=== PATIENT | male | born 1940 | race Caucasian/White ===

== ENCOUNTER → 2016-10-05 | Outpatient (CLI) | payer OTHER ==
[~2016-10-05] MED LIST: ASPI81CH PO; CALTTAB PO; CARV3.125 PO; DENO60P SQ; DRIS50002 PO; EMTR1TAB2 PO; FENO54TA PO; FURO1TAB62 PO; KPHOS250 PO; NAPR220T95 PO; SODI650T PO; SPIR25TA PO; TEST200I12 IM; TIOT1AER INH; XIFA550T4 PO
--- NOTE | 2016-10-05 14:52 | RADRPT ---
EXAM DATE/TIME: 10/05/2016 14:10 [facility] COMPARISON: CHEST SINGLE AP, April 08, 2016, 11:29. INDICATIONS : Short of breath. MEDICAL HISTORY : Fluid in lungs. SURGICAL HISTORY : Fluid drained left lung. ENCOUNTER: Initial ACUITY: 7 - 11 months PAIN SCORE: 0/10 LOCATION: Bilateral chest FINDINGS: PA and lateral views of the chest demonstrate moderate right pleural effusion bibasilar density. Hear t enlarged. Left lung clear. Left-sided defibrillator with intact leads. Osseous structures are inta ct. CONCLUSION: 1. Moderate right pleural effusion and right basilar density likely atelectasis. 2. Left-sided defibrillator. Des Major MD on October 05, 2016 at 14:49 Board Certified Radiologist. This report was verified electronically.
== END ==
LOC: HRAD 13:56
PROVIDERS: ATTEND Specialist
DX: R06.02 Shortness of breath (principal)
CPT/HCPCS: 71020

== ENCOUNTER → 2016-10-06 | Outpatient (CLI) | payer OTHER ==
--- NOTE | 2016-10-06 10:43 | RADRPT ---
EXAM DATE/TIME: 10/06/2016 10:12 [facility] COMPARISON: CHEST PA & LAT, October 05, 2016, 14:10. INDICATIONS : Short of breath and congestion. MEDICAL HISTORY : Fluid drained from left lung. SURGICAL HISTORY : ENCOUNTER: Initial ACUITY: 7 - 11 months PAIN SCORE: 0/10 LOCATION: Bilateral chest FINDINGS: Bilateral decubitus views of the chest demonstrate a moderate right pleural effusion which appears to be somewhat loculated. No evidence of free-flowing pleural effusion on the left. CONCLUSION: 1. Moderate right pleural effusion loculated in appearance. 2. No left pleural effusion. Des Major MD on October 06, 2016 at 10:36 Board Certified Radiologist. This report was verified electronically.
== END ==
LOC: HRAD 09:51
PROVIDERS: ATTEND Specialist
DX: R06.02 Shortness of breath (principal)
CPT/HCPCS: 71035

== ENCOUNTER 2016-10-08 09:24 | Day surgery (SDC) | payer OTHER, MEDICAID ==
[2016-10-08 12:30] VITALS: BP 108/74; PULSE 76; RESP 20; TEMP 97.6; O2SAT 90
[2016-10-08 12:45] VITALS: BP 124/82; PULSE 78; RESP 20; RESP 24; O2SAT 92
--- NOTE | 2016-10-08 12:57 | RADRPT ---
EXAM DATE/TIME: 10/08/2016 12:17 [facility] COMPARISON: CHEST PA & LAT, October 05, 2016, 14:10. INDICATIONS : Post thoracentesis on right side. MEDICAL HISTORY : Hypertension. Pleural effusion. SURGICAL HISTORY : Pacemaker. Defibrillator. ENCOUNTER: Initial ACUITY: 1 day PAIN SCORE: 0/10 LOCATION: Right chest FINDINGS: A single frontal expiratory view of the chest was performed. The lungs are symmetrically aerated and clear. Small right basilar pneumothorax. Heart enlarged. Left-sided defibrillator. CONCLUSION: Small right basilar pneumothorax. Des Major MD on October 08, 2016 at 12:53 Board Certified Radiologist. This report was verified electronically.
[2016-10-08 13:03] LABS: TOTAL PROTEIN,PLEURAL FLUID 3.7 GM/DL
--- NOTE | 2016-10-08 14:02 | RADRPT ---
EXAM DATE/TIME: 10/08/2016 10:31 [facility] COMPARISON: No previous studies available for comparison. INDICATIONS : Pleural effusion. Prophylactic antibiotics were administered with appropriate pre-procedure timing. MEDICAL HISTORY : Hypertension. Gastroesophageal reflux disease. HIV. Cardiac disorder. Pleural effusion.Renal disease. SURGICAL HISTORY : Thoracentesis. Cardiac surgery. ENCOUNTER: Subsequent ACUITY: 7 - 11 months PAIN SCORE: 0/10 LOCATION: Right chest FLUID: Total volume of 1100 cc of clear, red fluid was removed. Fluid was sent to lab for ordered studies. Post procedure scanning reveals no hematoma or other complication. TECHNIQUE: 1. Ultrasound guidance for thoracentesis. 2. Thoracentesis. The risks, benefits, and alternatives to ultrasound guided thoracentesis were explained to the patien t in lay simple terms, including the risk of bleeding and infection. Written and verbal informed con sent was obtained. Appropriate area for thoracentesis was marked under ultrasound guidance with the patient in the uprig ht position. Overlying skin was prepped and draped in the usual sterile fashion and with local anest hetic, a dermatotomy was made with an 11 blade scalpel. A 6 [place] thoracentesis catheter was placed in the pleural space and fluid was removed. Catheter was then removed and a sterile dressing applie d. There were no immediate complications. The patient tolerated the procedure well and the left the ultrasound suite in stable condition. Chest radiograph is to be obtained. CONCLUSION: Successful ultrasound guided thoracentesis. Minimal residual loculated fluid present. Des Major MD on October 08, 2016 at 13:57 Board Certified Radiologist. This report was verified electronically.
[2016-10-08 14:47] VITALS: BP 106/58; PULSE 86; RESP 24; O2SAT 95
--- NOTE | 2016-10-08 15:18 | RADRPT ---
EXAM DATE/TIME: 10/08/2016 14:19 [facility] COMPARISON: CHEST SINGLE AP, April 08, 2016, 11:29. INDICATIONS : Post thoracentesis. MEDICAL HISTORY : Hypertension. Pleural effusion. SURGICAL HISTORY : Pacemaker. ENCOUNTER: Initial ACUITY: 1 day PAIN SCORE: 0/10 LOCATION: Right chest FINDINGS: A single frontal expiratory view of the chest was performed. Right basilar pneumothorax again seen du e to the nonreexpansion of the right lung. Left lung clear. Heart enlarged. A left-sided defibrillator again seen. Osseous structures are intact. CONCLUSION: 1. Nonreexpansion of the right lung status post thoracentesis. This was similar compared to the last time patient had a thoracentesis. The patient had a chest tube placed previously and the lungs still have not reexpanded. Patient is asymptomatic. Patient will be sent home with instructions to return t o the ED if becomes short of breath. 2. Cardiomegaly and left-sided pacemaker. Des Major MD on October 08, 2016 at 15:13 Board Certified Radiologist. This report was verified electronically.
== END 2016-10-08 15:40 | disposition home or self-care (01) ==
LOC: HRAD 09:24 → HRIP 09:27 → HRAD 15:40
PROVIDERS: ATTEND Specialist
DX: J90 Pleural effusion, not elsewhere classified (principal); J18.9 Pneumonia, unspecified organism; I10 Essential (primary) hypertension; K21.9 Gastro-esophageal reflux disease without esophagitis; Z95.0 Presence of cardiac pacemaker
CPT/HCPCS: 32555; 71010; 83615; 84157; 87070; 87205; 88112; 88305; C1729